=== PATIENT | female | born 1985 | race Caucasian/White ===

== ENCOUNTER 2025-04-29 08:44 | Inpatient (IN) | payer BC ==
[2025-04-29] MEDS: Sodium Chloride 0.9% 10 ML Syringe FLUSH PRN ×2 (09:26→11:00)
[2025-04-29 09:32] LABS: BASOPHILS ABSOLUTE AUTO 0.0 K/mm3 (0.0-0.2); BASOPHILS PERCENT AUTO 0.3 % (0.0-1.0); EOSINOPHILS ABSOLUTE AUTO 0.0 K/mm3 (0.0-0.4); EOSINOPHILS PERCENT AUTO 0.0 % (0.0-6.0); IMMATURE GRAN ABSOLUTE AUTO 0.07 K/mm3 (0.00-0.05); IMMATURE GRAN PERCENT AUTO 0.7 % (0.0-0.4); LYMPHOCYTES ABSOLUTE AUTO 0.6 K/mm3 (1.0-4.8); LYMPHOCYTES PERCENT AUTO 6.3 % (24.0-44.0); MEAN PLATELET VOLUME 10.0 fl (9.4-12.3); MONOCYTES ABSOLUTE AUTO 0.3 K/mm3 (0.0-0.8); MONOCYTES PERCENT AUTO 2.8 % (0.0-8.0); NEUTROPHILS ABSOLUTE AUTO 9.1 K/mm3 (1.8-7.7); NEUTROPHILS PERCENT AUTO 89.9 % (41.0-71.0); NRBC ABSOLUTE 0.00 (0.00-0.02); NRBC PERCENT 0.0 % (0.0-0.2); PLATELET COUNT,PLT 293 K/mm3 (150-400); RED BLOOD CELL COUNT 4.93 M/mm3 (4.10-5.30); WHITE BLOOD CELL COUNT,WBC 10.09 K/mm3 (3.9-11.3)
[2025-04-29 10:11] LABS: A/G RATIO 1.1 (1-2); ALANINE AMINOTRANSFERASE,ALT 83.0 U/L (14-59); ASPARTATE AMNIOTRANSFERASE,AST 36.0 U/L (15-37); BILIRUBIN TOTAL 0.6 mg/dL (0.2-1.0); BLOOD UREA NITROGEN,BUN 10.0 mg/dL (7-18); CARBON DIOXIDE,CO2 27.0 mEq/L (21-32); CHLORIDE,CL 105.0 mEq/L (98-107); CREATININE 0.8 mg/dL (0.55-1.02); EST CRCL DRUG DOSING (CG) 98.67 mL/min; ESTIMATED GFR 96.0 mL/min (>60); GLUCOSE RANDOM 109.0 mg/dL (70-99); POTASSIUM,K 4.0 mEq/L (3.5-5.1); PROTEIN TOTAL,TP 7.9 g/dl (6.4-8.2); SODIUM,NA 142.0 mEq/L (136-145)
[2025-04-29 10:14] LABS: ETHANOL BLOOD MEDICAL 0.0 gm% (0.00)
[2025-04-29] MEDS ORDERED: Sodium Chloride 0.9% 10 ML Syringe FLUSH PRN (10:18)
[2025-04-29] MEDS ORDERED: EPINEPHrine 1 MG/ML SDV IM ONE (10:18)
[2025-04-29] MEDS: diphenhydrAMINE 50 MG/ML SDV IVPUSH ONE (10:32)
[2025-04-29] MEDS: EPINEPHrine 1 MG/ML SDV IM ONE (10:32)
[2025-04-29] MEDS: methylPREDNISolone Sodium Succinate 125 MG/2 ML SDV IVPUSH ONE (10:33)
[2025-04-29] MEDS: Iopamidol 612 MG/ML 100 ML Bottle IVPUSH ONE (11:00)
[2025-04-29] MEDS: droPERidol 2.5 MG/ML SDV IV ONE ×2 (12:15→19:10)
[2025-04-29 12:48] LABS: BUPRENORPHINE SCREEN,URINE NEGATIVE (CUTOFF=10); METHADONE SCREEN, URINE NEGATIVE (CUTOFF=200); METHAMPHETAMINES SCREEN, URINE NEGATIVE (CUTOFF=500); OXYCODONE SCREEN,URINE NEGATIVE (CUT0FF=100); THC SCREEN,URINE 20 NG/ML NEGATIVE (CUTOFF=50)
[2025-04-29 12:50] LABS: APPEARANCE,URINE CLEAR (Clear); GLUCOSE,URINE NEGATIVE (Negative); OCCULT BLOOD,URINE TRACE-LYSED (Negative)
[2025-04-29 12:52] LABS: AMPHETAMINES SCREEN, URINE NEGATIVE (CUTOFF=500)
[2025-04-29 13:07] LABS: SQUAMOUS EPITHELIAL CELLS,UR 0-5 /hpf (0-5)
[2025-04-29] MEDS: Lactated Ringers 1,000 ML IV SCH (21:07)
[2025-04-29 21:48] LABS: BICARBONATE,VENOUS 22.4 meq/L (22-26); O2 SATURATION VENOUS 90.8; PCO2 VENOUS 33.0 mmHg (41-51); PH,VENOUS 7.44 (7.30-7.40); PO2 VENOUS 60.0 mmHG (40-80)
[2025-04-29 21:49] LABS: BASE EXCESS VENOUS -1.0 (-4.0-2.0)
[2025-04-30 05:44] LABS: BASOPHILS ABSOLUTE AUTO 0.0 K/mm3 (0.0-0.2); BASOPHILS PERCENT AUTO 0.2 % (0.0-1.0); EOSINOPHILS ABSOLUTE AUTO 0.0 K/mm3 (0.0-0.4); EOSINOPHILS PERCENT AUTO 0.1 % (0.0-6.0); IMMATURE GRAN ABSOLUTE AUTO 0.11 K/mm3 (0.00-0.05); IMMATURE GRAN PERCENT AUTO 0.9 % (0.0-0.4); LYMPHOCYTES ABSOLUTE AUTO 1.5 K/mm3 (1.0-4.8); LYMPHOCYTES PERCENT AUTO 12.0 % (24.0-44.0); MEAN PLATELET VOLUME 9.9 fl (9.4-12.3); MONOCYTES ABSOLUTE AUTO 1.3 K/mm3 (0.0-0.8); MONOCYTES PERCENT AUTO 10.2 % (0.0-8.0); NEUTROPHILS ABSOLUTE AUTO 9.7 K/mm3 (1.8-7.7); NEUTROPHILS PERCENT AUTO 76.6 % (41.0-71.0); NRBC ABSOLUTE 0.00 (0.00-0.02); NRBC PERCENT 0.0 % (0.0-0.2); PLATELET COUNT,PLT 267 K/mm3 (150-400); RED BLOOD CELL COUNT 4.06 M/mm3 (4.10-5.30); WHITE BLOOD CELL COUNT,WBC 12.59 K/mm3 (3.9-11.3)
[2025-04-30 06:21] LABS: A/G RATIO 1.0 (1-2); ALANINE AMINOTRANSFERASE,ALT 59.0 U/L (14-59); ASPARTATE AMNIOTRANSFERASE,AST 23.0 U/L (15-37); BILIRUBIN TOTAL 0.7 mg/dL (0.2-1.0); BLOOD UREA NITROGEN,BUN 8.0 mg/dL (7-18); CARBON DIOXIDE,CO2 24.0 mEq/L (21-32); CHLORIDE,CL 106.0 mEq/L (98-107); CREATININE 0.6 mg/dL (0.55-1.02); EST CRCL DRUG DOSING (CG) 131.56 mL/min; ESTIMATED GFR 117.0 mL/min (>60); GLUCOSE RANDOM 91.0 mg/dL (70-99); POTASSIUM,K 3.3 mEq/L (3.5-5.1); PROTEIN TOTAL,TP 6.3 g/dl (6.4-8.2); SODIUM,NA 140.0 mEq/L (136-145)
[2025-04-30] MEDS: Potassium Chloride 20 MEQ Tab.ER PO ONE (10:10)
== END 2025-04-30 10:15 | disposition home or self-care (01) | DRG 812 ==
LOC: JD.ED 08:44 → JD.MS 19:37
PROVIDERS: ADMIT Family Medicine; ATTEND Family Medicine
DX: T50.991A Poisoning by other drugs, medicaments and biological substances, accidental (unintentional), initial encounter (principal); E87.6 Hypokalemia; R79.89 Other specified abnormal findings of blood chemistry; E78.00 Pure hypercholesterolemia, unspecified; D72.829 Elevated white blood cell count, unspecified; Z79.1 Long term (current) use of non-steroidal anti-inflammatories (NSAID); Z79.899 Other long term (current) drug therapy; Z90.49 Acquired absence of other specified parts of digestive tract; Z98.890 Other specified postprocedural states; Y92.89 Other specified places as the place of occurrence of the external cause
CPT/HCPCS: 36415; 74177; 74177-26; 80053; 80306; 80307; 81001; 82803; 83605; 83690; 83735; 84703; 85025; 96361; 96372; 96374; 96375; 99222; 99284; 99285-25; A9270-GY; J0169; J1200; J1308; J1790; J2919; J7030; J7120; Q9967